=== PATIENT | female | born 1995 | race Caucasian/White ===

== ENCOUNTER 2020-06-19 03:50 | Inpatient (IN) | payer BC, OTHER ==
[~2020-06-19] VITALS: Ht 172.7 cm; Wt 93.0 kg
[2020-06-19] MEDS ORDERED: NEWBORN KIT ONE ×2 (03:58→19:04)
[2020-06-19] MEDS ORDERED: MISOPROSTOL 200 MCG TABLET ONE (04:15)
[2020-06-19] MEDS ORDERED: LIDOCAINE 1%, 20ML ONE (04:15)
[2020-06-19] MEDS ORDERED: OXYTOCIN 30U/ 0.9% NaCL 500ML 500 ML ONE ×2 (04:15→20:50)
[2020-06-19] MEDS: LACTATED RINGERS 1,000 ML IV SCH ×2 (04:25→05:30)
[2020-06-19] MEDS ORDERED: TERBUTALINE 1 MG/ML, 1ML IVPush PRN (04:30)
[2020-06-19] MEDS ORDERED: CALCIUM CARBONATE 500 MG TAB.CHEW PO PRN ×2 (04:30→21:00)
[2020-06-19] MEDS ORDERED: PLEASE ENTER HEIGHT AND WEIGHT MC SCH (04:30)
[2020-06-19] MEDS ORDERED: OXYTOCIN 30U/ 0.9% NaCL 500ML 500 ML IV PRN (04:30)
[2020-06-19] MEDS ORDERED: FENTANYL PF 100 MCG/2ML IV PRN (04:30)
[2020-06-19] MEDS ORDERED: FENTANYL PF 100 MCG/2ML IVPush PRN (04:30)
[2020-06-19] MEDS ORDERED: TERBUTALINE 1 MG/ML, 1ML SQ PRN (04:30)
[2020-06-19] MEDS ORDERED: ONDANSETRON 2MG/ML, 2ML IVPush PRN (04:30)
[2020-06-19 04:39] LABS: BASOPHILS % (AUTO) 0 % (0-1); EOSINOPHILS % (AUTO) 0 % (1-7); LYMPHOCYTES % (AUTO) 19 % (22-44); MEAN CORPUSCULAR HEMOGLOBIN 32.5 pg (27.0-34.8); MEAN CORPUSCULAR HGB CONC 34.3 g/dL (32.4-35.8); MEAN PLATELET VOLUME 8.6 fL (7.4-10.4); MONOCYTES % (AUTO) 7 % (2-9); NEUTROPHILS % (AUTO) 73 % (42-75); PLATELET COUNT 196 x10^3/uL (130-400); RED BLOOD COUNT 3.73 x10^6/uL (3.82-5.3); RED CELL DISTRIBUTION WIDTH 13.2 % (9.6-15.2)
[2020-06-19 04:44] LABS: MD NO
[2020-06-19] MEDS ORDERED: FENTANYL PF 100 MCG/2ML ONE (04:44)
[2020-06-19 04:58] VITALS: BP 126/80
[2020-06-19] MEDS ORDERED: BUPIVACAINE 0.25% ONE (05:18)
[2020-06-19] MEDS ORDERED: LACTATED RINGERS 1,000 ML IVBOLUS PRN (06:00)
[2020-06-19] MEDS ORDERED: EPHEDRINE 50 MG/ML, 1ML IVPush PRN (06:00)
[2020-06-19] MEDS ORDERED: FENTANYL/BUPIV./NS/PF 250 ML EPIDCONT SCH (06:00)
[2020-06-19] MEDS ORDERED: LACTATED RINGERS 1,000 ML IV SCH (06:00)
[2020-06-19] MEDS ORDERED: FENTANYL/BUPIV./NS/PF 250 ML EPIDCONT ONE (06:07)
[2020-06-19] MEDS ORDERED: CALCIUM CARBONATE 500 MG TAB.CHEW ONE (18:45)
[2020-06-19] MEDS ORDERED: ACETAMINOPHEN 325 MG TABLET PO PRN ×2 (20:30→21:00)
[2020-06-19] MEDS ORDERED: ACETAMINOPHEN 325 MG TABLET ONE (20:50)
[2020-06-19] MEDS: OXYTOCIN 30U/ 0.9% NaCL 500ML 500 ML IV SCH ×4 (20:53→23:52)
[2020-06-19] MEDS ORDERED: MAGNESIUM HYDROXIDE 8%, 30ML UDC PO PRN (21:00)
[2020-06-19] MEDS ORDERED: METHYLERGONOVINE 0.2 MG/ML IM PRN (21:00)
[2020-06-19] MEDS ORDERED: TRANEXAMIC ACID 100 MG/ML, 10ML IV ONE (21:00)
[2020-06-19] MEDS ORDERED: MISOPROSTOL 200 MCG TABLET PR PRN (21:00)
[2020-06-19] MEDS ORDERED: METOCLOPRAMIDE 5 MG/ML, 2ML IV PRN (21:00)
[2020-06-19] MEDS ORDERED: OXYcodone/APAP 5/325MG TABLET PO PRN (21:00)
[2020-06-19] MEDS ORDERED: SIMETHICONE 80 MG CHEW TAB PO PRN (21:00)
[2020-06-19] MEDS ORDERED: ONDANSETRON 2MG/ML, 2ML IV PRN (21:00)
[2020-06-19] MEDS ORDERED: DIPH,PERTUSS(ACELL),TET VAC/PF NC IM-VACC PRN (21:00)
[2020-06-19] MEDS ORDERED: IBUPROFEN 600 MG TABLET ONE (21:55)
[2020-06-19] MEDS: IBUPROFEN 600 MG TABLET PO PRN (21:59)
[2020-06-19 23:40] VITALS: BP 117/72
[2020-06-20 00:58] VITALS: BP 124/81
[2020-06-20] MEDS: OXYTOCIN 30U/ 0.9% NaCL 500ML 500 ML IV SCH ×7 (01:18→07:02)
[2020-06-20 03:29] VITALS: BP 122/80
[2020-06-20] MEDS: IBUPROFEN 600 MG TABLET PO PRN ×3 (05:50→20:07)
[2020-06-20 06:08] LABS: BASOPHILS % (AUTO) 0 % (0-1); EOSINOPHILS % (AUTO) 0 % (1-7); LYMPHOCYTES % (AUTO) 10 % (22-44); MEAN CORPUSCULAR HGB CONC 33.6 g/dL (32.4-35.8); MEAN PLATELET VOLUME 8.6 fL (7.4-10.4); MONOCYTES % (AUTO) 6 % (2-9); NEUTROPHILS % (AUTO) 84 % (42-75); PLATELET COUNT 176 x10^3/uL (130-400); RED BLOOD COUNT 3.46 x10^6/uL (3.82-5.3); RED CELL DISTRIBUTION WIDTH 13.4 % (9.6-15.2)
[2020-06-20 07:05] LABS: MD SCAN
[2020-06-20 08:30] VITALS: BP 108/73
[2020-06-20] MEDS ORDERED: PRENATAL VIT/IRON/FA 1 EACH TABLET PO SCH (09:00)
[2020-06-20] MEDS: DOCUSATE 100 MG CAPSULE PO PRN ×2 (09:53→20:07)
[2020-06-20] MEDS: OXYcodone/APAP 5/325MG TABLET PO PRN ×3 (09:53→20:07)
[2020-06-20 14:00] VITALS: BP 112/76
[2020-06-20] MEDS ORDERED: IBUP-1222 PO (17:35)
[2020-06-20] MEDS ORDERED: OXYC-302 PO (17:35)
[2020-06-20 19:45] VITALS: BP 114/75
== END 2020-06-20 20:55 | disposition home or self-care (01) | DRG 806 ==
LOC: LDOP 03:50 → LDIP 04:13 → 2NW 22:45
PROVIDERS: ADMIT Obstetrics & Gynecology; ATTEND Obstetrics & Gynecology
PROC: 10907ZC Drainage of Amniotic Fluid, Therapeutic from Products of Conception, Via Natural or Artificial Opening (ICD-10-PCS; principal; 2020-06-19)
PROC: 10E0XZZ Delivery of Products of Conception, External Approach (ICD-10-PCS; 2020-06-19)
PROC: 0HQ9XZZ Repair Perineum Skin, External Approach (ICD-10-PCS; 2020-06-19)
PROC: 3E033VJ Introduction of Other Hormone into Peripheral Vein, Percutaneous Approach (ICD-10-PCS; 2020-06-19)
PROC: 3E0R3BZ Introduction of Anesthetic Agent into Spinal Canal, Percutaneous Approach (ICD-10-PCS; 2020-06-19)
PROC: 00HU33Z Insertion of Infusion Device into Spinal Canal, Percutaneous Approach (ICD-10-PCS; 2020-06-19)
DX: O70.1 Second degree perineal laceration during delivery (principal); O98.32 Other infections with a predominantly sexual mode of transmission complicating childbirth; Z37.0 Single live birth; A60.09 Herpesviral infection of other urogenital tract; Z20.828 Contact with and (suspected) exposure to other viral communicable diseases; Z23 Encounter for immunization; Z3A.39 39 weeks gestation of pregnancy
CPT/HCPCS: 36415; 85025; 86592; 86850; 86900; 87635; G0378; J3010; J2590; J7120